=== PATIENT | female | born 1965 | race American Indian/Alaskan Native ===

== ENCOUNTER 2022-01-01 08:14 | Day surgery (SDC) | payer MEDICAID ==
[2021-12-25 12:27] LABS: BASOPHILS # (AUTO) 0.1 X10'3 (0-0.2); EOSINOPHILS # (AUTO) 0.5 X10'3 (0-0.9); LYMPHOCYTES # (AUTO) 2.2 X10'3 (1.1-4.8); LYMPHOCYTES % (AUTO) 25.2 % (21-51); MEAN CORPUSCULAR HEMOGLOBIN 27.9 PG (27.0-31.0); MEAN CORPUSCULAR HGB CONC 32.6 g/dL (33.0-36.5); MEAN CORPUSCULAR VOLUME 85.7 FL (78-98); MEAN PLATELET VOLUME 7.2 FL (7.4-10.4); MONOCYTES # (AUTO) 0.8 X10'3 (0-0.9); MONOCYTES % (AUTO) 8.8 % (2-12); NEUTROPHILS # (AUTO) 5.2 X10'3 (1.8-7.7); PRE OP HEMOGLOBIN 12.7 g/dL (12.0-16.0); PRE OP PLATELET COUNT 389 X10'3 (140-440); RED BLOOD COUNT 4.55 X10'6 (4.20-5.60)
[2021-12-25 12:46] LABS: ALBUMIN/GLOBULIN RATIO 0.6 (1.1-1.5); ALKALINE PHOSPHATASE 100 IU/L (46-116); BLOOD UREA NITROGEN 6 MG/DL (7-18); BUN/CREATININE RATIO 8.5 (6.6-38.0); CALCIUM 8.4 MG/DL (8.5-10.1); CHLORIDE 104 MMOL/L (99-107); CREATININE 0.71 MG/DL (0.40-0.90); PRE OP ALT 24 U/L (30-65); PRE OP ANION GAP 7 (8-16); PRE OP AST 21 U/L (10-37); PRE OP BILIRUB, TOTAL 0.4 MG/DL (0.0-1.0); PRE OP GLUCOSE 151 MG/DL (70-104); PRE OP POTASSIUM 3.5 MMOL/L (3.4-5.1); PRE OP SODIUM 139 MMOL/L (135-145); TOTAL CARBON DIOXIDE 28.5 MMOL/L (24-32); TOTAL PROTEIN 7.7 G/DL (6.4-8.2); eGFR 85 ML/MIN
[~2022-01-01] VITALS: Ht 160 cm; Wt 111.0 kg
[2022-01-01] VITALS (17 sets, daily range): BP systolic 118–157; BP diastolic 61–102
[~2022-01-01 08:14] MED LIST: ATOR10TA70 PO; FERR325T29 PO; FURO20TA4 PO; LISI5TAB22 PO; METF-1203 PO; METF-438 PO; MULT-1085 PO; ceFOXitin 2GM-NS 100mL ADDvant 100 ML IV ONE; famotidine 20mg tablet PO ONE; ringers solution, lacted 1,000 ML IV SCH
[2022-01-01] MEDS ORDERED: enalaprilat dihydrate 2.5mg/2ml vial IV PRN (09:15)
[2022-01-01] MEDS ORDERED: hydrALAZINE 20mg/ml inj. IV PRN (09:15)
[2022-01-01] MEDS ORDERED: ringers solution, lacted 1,000 ML IV SCH (09:15)
[2022-01-01] MEDS ORDERED: morphine 2 MG/ML inj. syringe IV PRN (09:15)
[2022-01-01] MEDS ORDERED: fentaNYL/PF 50MCG/1 ML 2ML syringe IV PRN (09:15)
[2022-01-01] MEDS ORDERED: ondansetron/PF 4mg/2ml inj IV PRN (09:15)
[2022-01-01] MEDS ORDERED: glycopyrrolate 0.2mg/ml inj ONE (10:52)
[2022-01-01] MEDS ORDERED: sevoflurane 250ml liquid IH ONE (10:52)
[2022-01-01] MEDS ORDERED: dexamethasone sod phosphate 10mg/ml inj ONE (10:52)
[2022-01-01] MEDS ORDERED: fentaNYL/PF 50MCG/1 ML 2ML syringe ONE (11:04)
[2022-01-01] MEDS ORDERED: midazolam 1 mg/ML 2ml injection ONE (11:04)
[2022-01-01] MEDS ORDERED: BUPIVAcaine 0.5% W/EPI /PF 10ml vial ONE ×2 (11:04→11:07)
[2022-01-01] MEDS ORDERED: sugammadex 200mg/2ml injection IV ONE (11:13)
[2022-01-01] MEDS ORDERED: rocuronium 10mg/ml inj IV ONE (11:14)
[2022-01-01] MEDS ORDERED: ondansetron/PF 4mg/2ml inj ONE (11:14)
[2022-01-01] MEDS ORDERED: etomidate 2mg/ml inj. ONE (11:14)
--- NOTE | 2022-01-01 12:05 | NUR ---
Received from OR via [facility], accompanied by Anesthesiologist DR COMER and report given by Anesthesiolgist. PT PRESENTS WITH PIV 20G LEFT HAND, ABD DRESSING CDI, VSS. Addendum: 01/01/22 at 1220 by Lamar Murray RN, RN Amended: Links added.
[2022-01-01] MEDS: fentaNYL/PF 50MCG/1 ML 2ML syringe IV PRN ×2 (12:10→12:21)
[2022-01-01] MEDS: morphine 4 MG/ML inj SYRINge IV PRN ×2 (12:35→13:31)
[2022-01-01 12:40] LABS: CLARITY,URINE CLEAR (Clear); COLOR,URINE YELLOW (Yellow); GLUCOSE, URINE NEGATIVE (Neg); KETONES,URINE NEGATIVE (Neg); LEUKOCYTE ESTERASE ,URINE TRACE (Neg); NITRITES, URINE NEGATIVE (Neg); OCCULT BLOOD,URINE NEGATIVE (Neg); PH,URINE 5.5 (4.8-8.0); PROTEIN,URINE NEGATIVE (Neg); UROBILINOGEN,URINE 0.2 E.U/dL (0.2-1.0)
[2022-01-01 12:43] LABS: UA COLLECTION TYPE CLN CATCH MIDSTREAM
[2022-01-01 12:50] LABS: BACTERIA,URINE NONE SEEN /HPF (Neg); MUCUS STRANDS FEW /LPF (Neg); RBC,URINE NONE SEEN /HPF (0-2); SQUAMOUS EPITHELIAL CELL,UR MODERATE /LPF (FEW); WBC,URINE 0-4 /HPF (0-4)
[2022-01-01] MEDS ORDERED: HYDROcodone/acetaminophen 10/325mg tab PO ONE (13:35)
--- NOTE | 2022-01-01 14:30 | NUR ---
PATIENT DISCHARGED FROM PACU IN STABLE CONDITION AFTER WRITTEN AND VERBAL DISCHARGE INSTRUCTIONS GIVEN. PATIENT GAVE VERBAL UNDERSTANDING OF INSTRUCTIONS GIVEN. PATIENT LEFT FACILITY VIA WHEELCHAIR WITH RN. Addendum: 01/01/22 at 1543 by Lamar Murray RN RN Amended: Links added.
== END 2022-01-01 14:35 | disposition home or self-care (01) ==
LOC: PAS 08:14
PROVIDERS: ATTEND Surgery
DX: K80.10 Calculus of gallbladder with chronic cholecystitis without obstruction (principal); K42.9 Umbilical hernia without obstruction or gangrene; G47.00 Insomnia, unspecified; F32.A Depression, unspecified; E11.9 Type 2 diabetes mellitus without complications; I11.0 Hypertensive heart disease with heart failure; I50.9 Heart failure, unspecified; D64.9 Anemia, unspecified; G47.30 Sleep apnea, unspecified; E66.01 Morbid (severe) obesity due to excess calories; Z68.41 Body mass index [BMI] 40.0-44.9, adult; Z20.822 Contact with and (suspected) exposure to COVID-19; Z79.84 Long term (current) use of oral hypoglycemic drugs; Z85.42 Personal history of malignant neoplasm of other parts of uterus; Z98.890 Other specified postprocedural states; Z98.51 Tubal ligation status; Z79.899 Other long term (current) drug therapy; Z87.891 Personal history of nicotine dependence; Z91.018 Allergy to other foods; Z83.3 Family history of diabetes mellitus
CPT/HCPCS: 36415; 47562; 49585; 80053; 81001; 82948; 85025; 93005; J0694; J1100; J2250; J2270; J2405; J3010; J3490; J7030; J7120; S0020; U0003; U0005; Z7506; Z7508; Z7512; A4215; A4618; A7000